=== PATIENT | male | born 1955 | race Caucasian/White ===

== ENCOUNTER 2020-02-16 11:54 | Emergency (ER) | payer BC, SELFPAY ==
--- NOTE | ~2020-02-16 | XR_ITS ---
EXAMINATION: XR femur RT min 2V DATE: 02/16/2020 12:55 INDICATION: Right thigh injury and pain. TECHNIQUE: 2 views of right femur on 4 radiographs were obtained. COMPARISON: None. FINDINGS: Bone alignment is normal. No fracture. There is moderate osteoarthritis of right hip and kn ee joints. There is chondrocalcinosis of the menisci in the knee. There is a small knee joint effusio n. IMPRESSION: 1. Polyarticular osteoarthritis. 2. Small right knee joint effusion. Reviewed, dictated and finalized at location [facility] [employer]
[2020-02-16 12:12] VITALS: BP 136/65; PULSE 95; RESP 16; TEMP 37.1; O2SAT 98
--- NOTE | 2020-02-16 12:15 | ED.GENADULT ---
HPI - General Adult General Chief complaint: Fall Stated complaint: back hip and right leg pain from fall Time Seen by Provider: 02/16/20 12:15 Source: patient and RN notes reviewed Mode of arrival: ambulatory (with crutches) Limitations: no limitations History of Present Illness HPI narrative: 64-year-old male presents with complaints of right hip, thigh, and knee pain and swelling to right thigh and knee for the past 3 days. Elena reports he fell going out into his garage on Friday02/13/20 fallen on to right side and pain continues to increase daily. Tylenol, last this morning at 09:00 without little relief. He reports he ambulates with crutches to relieve pain from right extremity. Pain radiates throughout thigh and knee. No numbness or tingling or bleeding. No loss of mobility. Exacerbating factor consist of bearing weight, getting into car, and straighten leg. Denies recent travel or long car rides. History of DVT or PE. Denies hitting head, loss of consciousness, seizure activity, or syncopal episodes. No chest pain or dyspnea. Remains active. The patient reports he have not been diagnosed with COVID-19. The patient reports he is not waiting for the results of a COVID-19 lab test. The patient reports he do not have fever, chills, weakness, fatigue, myalgia, or facial swelling. The patient reports he do not have a new or worsening cough. The patient reports she do not have any rhinorrhea, congestion, sore throat, nausea, vomiting, abdominal pain, and diarrhea. Tolerating po intake well. Denies concerns for COVID-19 or exposures been home with limited outdoor exposure except for essential household needs and return home. At this time, patient is not suspected of having COVID-19. Some parts of this dictation were generated by voice recognition software and may contain typographical and/or grammatical inaccuracies. Related Data Home Medications Medication Instructions Recorded Confirmed atorvastatin 20 mg PO DAILY 02/16/20 02/16/20 diltiazem HCl 360 mg PO DAILY 02/16/20 02/16/20 glimepiride 4 mg PO BID 02/16/20 02/16/20 insulin detemir U-100 [Levemir 40 unit SUBCUT BID 02/16/20 02/16/20 Flexpen] lisinopril 20 mg PO DAILY 02/16/20 02/16/20 metformin 1,000 mg PO BID 02/16/20 02/16/20 omeprazole 20 mg PO DAILY 02/16/20 02/16/20 warfarin 7.5 mg PO DAILY 02/16/20 02/16/20 warfarin 8 mg PO DAILY 02/16/20 02/16/20 Allergies Allergy/AdvReac Type Severity Reaction Status Date / Time Penicillins Allergy Unknown Verified 02/16/20 12:38 Review of Systems Review of Systems: Narrative: CONSTITUTIONAL: Denies fever, chills, sweats. EYES: Denies visual changes, redness, discharge. ENT: Denies rhinorrhea, congestion, sore throat, otalgia. CARDIOVASCULAR: Denies chest pain, palpitations, edema. RESPIRATORY: Denies dyspnea, wheezing, cough. GASTROINTESTINAL: Denies abdominal pain, nausea, vomiting, diarrhea. GENITOURINARY: Denies dysuria, hematuria, abnormal discharge SKIN: Denies rash or itching. MUSCULOSKELETAL: Denies acute back pain or myalgia. Complaints of right hip, thigh, and knee pain and swelling to right thigh and knee. NEUROLOGIC: Denies numbness, or focal weakness. PSYCHIATRIC: Denies anxiety or depression. All systems reviewed & are unremarkable except as noted in HPI and below. [facility] Past Medical History Medical History (Updated 02/17/20 @ 00:00 by Background Daemon) Arm fracture, left Atrial fibrillation Clavicle fracture Left Diabetes History of gastroesophageal reflux (GERD) Hypertension Obstructive sleep apnea Sinusitis Tear of biceps tendon Right with repair Surgical History Surgical History (Updated 02/16/20 @ 17:28 by GREG Amin) History of arthroscopic knee surgery Right x3 History of tonsillectomy Hx of sinus surgery Family History Family History (Updated 02/16/20 @ 17:29 by GREG Amin) Father , Unknown cause of No problems not
[2020-02-16] MEDS: KETOROLAC (*BKC) 60 MG/2 ML VIAL IM (12:55)
== END 2020-02-16 13:25 | disposition home or self-care (01) ==
PROVIDERS: Emergency Provider Nurse Practitioner Family; PCP Internal Medicine Infectious Disease
DX: M16.11 Unilateral primary osteoarthritis, right hip (principal); M17.11 Unilateral primary osteoarthritis, right knee; M25.461 Effusion, right knee; W19.XXXA Unspecified fall, initial encounter; I48.91 Unspecified atrial fibrillation; E11.9 Type 2 diabetes mellitus without complications; K21.9 Gastro-esophageal reflux disease without esophagitis; I10 Essential (primary) hypertension; G47.33 Obstructive sleep apnea (adult) (pediatric); F17.210 Nicotine dependence, cigarettes, uncomplicated
CPT/HCPCS: 73552; 96372; 99213; G0463; J1885